=== PATIENT | male | born 1960 | race Caucasian/White ===

== ENCOUNTER 2017-10-28 09:28 | Emergency (ER) | payer MEDICAID ==
[~2017-10-28] VITALS: Ht 170.2 cm; Wt 90.9 kg
[~2017-10-28 09:28] MED LIST: LISI-600 PO
[2017-10-28 10:31] LABS: BASOPHILS % (AUTO) 0.9 % (0-1); EOSINOPHILS # (AUTO) 0.1 X10'3 (0-0.9); EOSINOPHILS % (AUTO) 1.9 % (0-6); HEMATOCRIT 43.6 % (42.0-52.0); HEMOGLOBIN 14.5 g/dl (14.0-17.9); LYMPHOCYTES # (AUTO) 1.3 X10'3 (1.1-4.8); LYMPHOCYTES % (AUTO) 30.3 % (21-51); MEAN CORPUSCULAR HEMOGLOBIN 28.4 PG (27.0-31.0); MEAN CORPUSCULAR HGB CONC 33.3 % (33.0-36.5); MEAN CORPUSCULAR VOLUME 85.2 FL (78-98); MEAN PLATELET VOLUME 8.3 FL (7.4-10.4); MONOCYTES # (AUTO) 0.3 X10'3 (0-0.9); MONOCYTES % (AUTO) 6.9 % (2-12); NEUTROPHILS # (AUTO) 2.6 X10'3 (1.8-7.7); PLATELET COUNT 214 X10'3 (140-440); RED BLOOD COUNT 5.12 X10'6 (4.70-6.10); RED CELL DISTRIBUTION WIDTH 15.3 % (11.5-14.5); WHITE BLOOD COUNT 4.4 X10'3 (4.5-11.0)
[2017-10-28 10:40] LABS: PROTHROMBIN TIME 10.8 SECONDS (9.0-12.0)
[2017-10-28 10:44] LABS: ALANINE AMINOTRANSFERASE 19 U/L (12-78); ALBUMIN 3.6 G/DL (3.4-5.0); ALKALINE PHOSPHATASE 100 IU/L (46-116); ANION GAP 5 (8-16); ASPARTATE AMINO TRANSFERASE 14 U/L (10-37); BILIRUBIN,TOTAL 0.6 MG/DL (0.1-1.0); BLOOD UREA NITROGEN 14 MG/DL (7-18); BUN/CREATININE RATIO 14.1 (5.4-32.0); CALCIUM 8.5 MG/DL (8.5-10.1); CHLORIDE 104 MMOL/L (99-107); CREATININE 0.99 MG/DL (0.60-1.10); GLUCOSE 81 MG/DL (70-104); POTASSIUM 3.7 MMOL/L (3.5-5.1); SODIUM 138 MMOL/L (135-145); TOTAL CARBON DIOXIDE 29.4 MMOL/L (24-32); TOTAL PROTEIN 7.1 G/DL (6.4-8.2); eGFR 78 ML/MIN
[2017-10-28 10:55] LABS: CLARITY,URINE CLEAR (Clear); COLOR,URINE YELLOW (Yellow); GLUCOSE, URINE NEGATIVE (Neg); KETONES,URINE NEGATIVE (Neg); LEUKOCYTE ESTERASE ,URINE NEGATIVE (Neg); NITRITES, URINE NEGATIVE (Neg); OCCULT BLOOD,URINE NEGATIVE (Neg); PROTEIN,URINE NEGATIVE (Neg); UROBILINOGEN,URINE 0.2 E.U/dL (0.2-1.0)
[2017-10-28 10:59] LABS: UA COLLECTION TYPE STRAIGHT CATH
[2017-10-28] MEDS ORDERED: bisacodyl 10mg suppository rectal RC ONE (12:20)
[2017-10-28] MEDS ORDERED: normal saline 1000ML IV soln IVB ONE (12:20)
[2017-10-28] MEDS ORDERED: NA P133E4 RC (13:42)
[2017-10-28 14:05] VITALS: BP 168/83
[2017-10-28 14:25] LABS: LIPASE 118 U/L (73-393)
== END 2017-10-28 14:10 | disposition home or self-care (01) ==
LOC: ER 09:28
DX: K56.41 Fecal impaction (principal); G20 Parkinson's disease
CPT/HCPCS: 36415; 74018; 80053; 81003; 83690; 85025; 85610; 96360; 99285; A4353; J7030; 96365

== ENCOUNTER 2017-11-22 06:22 | Day surgery (SDC) | payer MEDICAID ==
[~2017-11-22] VITALS: Ht 170.2 cm; Wt 90.5 kg
[2017-11-22] VITALS (11 sets, daily range): BP systolic 127–167; BP diastolic 36–98
[2017-11-22] MEDS ORDERED: LIDOcaine Viscous 15ml cup ONE (06:36)
[2017-11-22] MEDS ORDERED: fentaNYL/PF 50MCG/1 ML 2ML syringe ONE (06:37)
[2017-11-22] MEDS ORDERED: MIDAZolam 1mg/ml 10ml vial ONE (06:37)
[2017-11-22] MEDS ORDERED: CHOL2000 PO (07:02)
[2017-11-22] MEDS ORDERED: ERGO500014 PO (07:02)
[2017-11-22] MEDS ORDERED: PANT-47 PO (07:03)
[2017-11-22] MEDS ORDERED: RASA1TAB4 PO (07:04)
[2017-11-22] MEDS ORDERED: MAGN400C PO (07:05)
[2017-11-22] MEDS ORDERED: [UNRECOGNIZED DRUG - CODE] PO (07:06)
[2017-11-22] MEDS ORDERED: METO25TA6 PO (07:07)
[2017-11-22] MEDS ORDERED: ATOR10TA PO (07:07)
[2017-11-22] MEDS ORDERED: AMIO200T57 PO (07:08)
[2017-11-22] MEDS ORDERED: MELA3TAB PO (07:09)
[2017-11-22] MEDS ORDERED: CARB1TAB23 PO (07:09)
[2017-11-22] MEDS ORDERED: ACET325C PO (07:11)
[2017-11-22] MEDS ORDERED: MAGN400O6 PO (07:12)
[2017-11-22] MEDS ORDERED: DULR RC (07:12)
[2017-11-22] MEDS ORDERED: NA P133E4 RC (07:13)
[2017-11-22] MEDS ORDERED: dextrose 50%-water 50ml dispensing syringe IV ONE (10:48)
== END 2017-11-22 13:11 ==
LOC: GI LAB 06:22
PROVIDERS: ATTEND Internal Medicine Gastroenterology
DX: Z12.11 Encounter for screening for malignant neoplasm of colon (principal); K29.50 Unspecified chronic gastritis without bleeding; K22.8 Other specified diseases of esophagus; K20.9 Esophagitis, unspecified; D37.5 Neoplasm of uncertain behavior of rectum; K62.89 Other specified diseases of anus and rectum; I10 Essential (primary) hypertension; E78.5 Hyperlipidemia, unspecified; G47.30 Sleep apnea, unspecified; J45.909 Unspecified asthma, uncomplicated; Z79.899 Other long term (current) drug therapy
CPT/HCPCS: 43239; 45380; 82948; 99152; 99153; J2250; J3010; J7030; J7060; A4620; G0500

== ENCOUNTER 2018-05-04 07:12 | Day surgery (SDC) | payer MEDICAID ==
[~2018-05-04] VITALS: Ht 170.2 cm; Wt 86.8 kg
[~2018-05-04 07:12] MED LIST changes: +ACET325C PO; +AMIO200T57 PO; +ATOR10TA PO; +CARB1TAB23 PO; +CHOL2000 PO; +DULR RC; +ERGO500014 PO; -LISI-600 PO; +MAGN400C PO; +MAGN400O6 PO; +MELA3TAB PO; +METO25TA6 PO; +NA P133E4 RC; +PANT-47 PO; +RASA1TAB4 PO; +[UNRECOGNIZED DRUG - CODE] PO
[2018-05-04] MEDS ORDERED: normal saline 1000ml 1,000 ML IV PRN (07:30)
[2018-05-04 08:34] VITALS: BP 141/69
[2018-05-04 08:34] LABS: BASOPHILS % (AUTO) 0.4 % (0-1); EOSINOPHILS # (AUTO) 0.3 X10'3 (0-0.9); HEMATOCRIT 38.7 % (42.0-52.0); LYMPHOCYTES # (AUTO) 1.5 X10'3 (1.1-4.8); LYMPHOCYTES % (AUTO) 31.9 % (21-51); MEAN CORPUSCULAR HGB CONC 33.6 % (33.0-36.5); MEAN CORPUSCULAR VOLUME 83.1 FL (78-98); MEAN PLATELET VOLUME 7.9 FL (7.4-10.4); MONOCYTES # (AUTO) 0.2 X10'3 (0-0.9); MONOCYTES % (AUTO) 4.9 % (2-12); NEUTROPHILS # (AUTO) 2.6 X10'3 (1.8-7.7); NEUTROPHILS % (AUTO) 56.8 % (42-75); PLATELET COUNT 152 X10'3 (140-440); RED BLOOD COUNT 4.66 X10'6 (4.70-6.10); RED CELL DISTRIBUTION WIDTH 15.3 % (11.5-14.5); WHITE BLOOD COUNT 4.6 X10'3 (4.5-11.0)
[2018-05-04] MEDS ORDERED: LORA0.5T PO (08:35)
[2018-05-04] MEDS ORDERED: SENN-161 PO (08:35)
[2018-05-04] MEDS ORDERED: RASA1TAB4 PO (08:35)
[2018-05-04] MEDS ORDERED: ESOM20CA59 PO (08:35)
[2018-05-04] MEDS ORDERED: fentaNYL/PF 50MCG/1 ML 2ML syringe IV PRN (09:55)
[2018-05-04] MEDS ORDERED: midazolam 2 mg/2 ml injection IV PRN (09:55)
[2018-05-04] MEDS ORDERED: heparin sodium, porcine/PF 100unit/ml 5ML syringe ICATH ONE (09:55)
[2018-05-04] MEDS ORDERED: heparin sodium, porcine/PF 100unit/ml 5ML syringe ONE (10:11)
[2018-05-04] MEDS ORDERED: midazolam 2 mg/2 ml injection ONE (10:11)
[2018-05-04] MEDS ORDERED: fentaNYL/PF 50MCG/1 ML 2ML syringe ONE (10:11)
[2018-05-04] MEDS ORDERED: LIDOcaine 1%/PF 5ML 10 MG/ML VIAL ONE ×2 (10:17→10:37)
[2018-05-04] MEDS ORDERED: normal saline 1000ml 1,000 ML IV SCH (10:23)
[2018-05-04 11:20] VITALS: BP 116/73
[2018-05-04 11:30] VITALS: BP 111/78
[2018-05-04 11:45] VITALS: BP 121/75
[2018-05-04 12:00] VITALS: BP 119/62
[2018-05-04 12:15] VITALS: BP 125/92
== END 2018-05-04 12:28 ==
LOC: SSTAY O 07:12
PROVIDERS: ATTEND Radiology Vascular & Interventional Radiology
DX: C20 Malignant neoplasm of rectum (principal); I10 Essential (primary) hypertension; E78.5 Hyperlipidemia, unspecified; K21.9 Gastro-esophageal reflux disease without esophagitis; G20 Parkinson's disease; G47.33 Obstructive sleep apnea (adult) (pediatric); J45.998 Other asthma; Z79.891 Long term (current) use of opiate analgesic; Z79.899 Other long term (current) drug therapy
CPT/HCPCS: 36415; 36561; 76937; 77001; 85025; 99152; 99153; A6219; C1788; C1894; J1642; J2001; J2250; J3010; J7030; A4620

== ENCOUNTER 2019-10-16 07:15 | Day surgery (SDC) | payer MEDICAID ==
[~2019-10-16] VITALS: Ht 170.2 cm; Wt 75.0 kg
[2019-10-16] VITALS (8 sets, daily range): BP systolic 117–151; BP diastolic 63–98
[~2019-10-16 07:15] MED LIST changes: -ACET325C PO; +ACET325C3 PO; -AMIO200T57 PO; +AMIO200T61 PO; -ERGO500014 PO; +ESOM20CA59 PO; +LORA0.5T PO; -MELA3TAB PO; +MELA3TAB64 PO; -PANT-47 PO; +SENN-162 PO; -[UNRECOGNIZED DRUG - CODE] PO
[2019-10-16] MEDS ORDERED: CAPE150T5 PO (07:41)
[2019-10-16] MEDS ORDERED: fentaNYL/PF 50MCG/1 ML 2ML syringe ONE (07:43)
[2019-10-16] MEDS ORDERED: CARB1TAB23 PO (07:43)
[2019-10-16] MEDS ORDERED: MIDAZolam 5mg/5ml vial ONE ×2 (07:44)
[2019-10-16] MEDS ORDERED: ESCI10TA PO (07:46)
[2019-10-16] MEDS ORDERED: MAGN400C PO (07:47)
[2019-10-16] MEDS ORDERED: DIPH25CA83 PO (07:47)
[2019-10-16] MEDS ORDERED: DOCU-148 (07:48)
[2019-10-16] MEDS ORDERED: ONDA4TAB12 PO (07:50)
[2019-10-16] MEDS ORDERED: SENN-162 PO (07:50)
[2019-10-16] MEDS ORDERED: SELE5TAB5 (07:51)
[2019-10-16] MEDS ORDERED: DONE5TAB7 PO (07:52)
[2019-10-16] MEDS ORDERED: ATOR10TA PO (07:53)
[2019-10-16] MEDS ORDERED: CHOL200052 PO (07:53)
[2019-10-16] MEDS ORDERED: MELA3TAB64 PO (07:54)
[2019-10-16] MEDS ORDERED: diphenhydrAMINE 50 mg/ml inj ONE (09:28)
== END 2019-10-16 11:35 ==
LOC: GI LAB 07:15
PROVIDERS: ATTEND Internal Medicine Gastroenterology
DX: Z08 Encounter for follow-up examination after completed treatment for malignant neoplasm (principal); C20 Malignant neoplasm of rectum
CPT/HCPCS: 45380; 82948; 99152; 99153; J1200; J2250; J3010; J7040; A4620

== ENCOUNTER 2021-04-27 22:10 | Inpatient (IN) | payer MEDICAID ==
[~2021-04-27] VITALS: Ht 167.6 cm; Wt 75.0 kg
[~2021-04-27 22:10] MED LIST changes: -AMIO200T61 PO; +CAPE150T5 PO; -CHOL2000 PO; +CHOL200052 PO; +DIPH25CA83 PO; +DOCU-148; +DONE5TAB7 PO; +ESCI10TA PO; -ESOM20CA59 PO; -LORA0.5T PO; -MAGN400O6 PO; +MELA3TAB39 PO; -MELA3TAB64 PO; -METO25TA6 PO; +ONDA4TAB12 PO; -RASA1TAB4 PO; +SELE5TAB5; -SENN-162 PO; +SENN-263 PO
[2021-04-27] MEDS ORDERED: normal saline 1000ML IV soln IVB ONE (22:20)
[2021-04-27 23:03] LABS: LACTIC SEPSIS 0.9 MMOL/L (0.4-2.0)
[2021-04-27 23:07] LABS: BASOPHILS % (AUTO) 0.5 % (0-1); EOSINOPHILS # (AUTO) 0.1 X10'3 (0-0.9); EOSINOPHILS % (AUTO) 2.4 % (0-6); HEMATOCRIT 42.9 % (42.0-52.0); HEMOGLOBIN 14.3 g/dl (14.0-17.9); LYMPHOCYTES # (AUTO) 0.9 X10'3 (1.1-4.8); LYMPHOCYTES % (AUTO) 14.3 % (21-51); MEAN CORPUSCULAR HEMOGLOBIN 32.3 PG (27.0-31.0); MEAN CORPUSCULAR HGB CONC 33.4 g/dL (33.0-36.5); MEAN CORPUSCULAR VOLUME 96.7 FL (78-98); MEAN PLATELET VOLUME 7.5 FL (7.4-10.4); MONOCYTES # (AUTO) 0.6 X10'3 (0-0.9); MONOCYTES % (AUTO) 9.8 % (2-12); NEUTROPHILS # (AUTO) 4.5 X10'3 (1.8-7.7); PLATELET COUNT 138 X10'3 (140-440); RED BLOOD COUNT 4.44 X10'6 (4.70-6.10); WHITE BLOOD COUNT 6.1 X10'3 (4.5-11.0)
[2021-04-27 23:10] LABS: ALANINE AMINOTRANSFERASE 9 U/L (12-78); ALBUMIN 3.2 G/DL (3.4-5.0); ALBUMIN/GLOBULIN RATIO 0.9 (1.1-1.5); ALKALINE PHOSPHATASE 98 IU/L (46-116); ANION GAP 4 (8-16); ASPARTATE AMINO TRANSFERASE 25 U/L (10-37); BILIRUBIN,TOTAL 0.5 MG/DL (0.1-1.0); BLOOD UREA NITROGEN 29 MG/DL (7-18); BUN/CREATININE RATIO 35.4 (5.4-32.0); CALCIUM 8.3 MG/DL (8.5-10.1); CHLORIDE 108 MMOL/L (99-107); CREATININE 0.82 MG/DL (0.60-1.10); GLUCOSE 79 MG/DL (70-104); POTASSIUM 4.1 MMOL/L (3.5-5.1); SODIUM 142 MMOL/L (135-145); TOTAL CARBON DIOXIDE 30.2 MMOL/L (24-32); TOTAL PROTEIN 6.9 G/DL (6.4-8.2); eGFR > 90 ML/MIN
[2021-04-27 23:17] LABS: C-REACTIVE PROTEIN 1.63 MG/DL (0.0-0.5); FERRITIN 98 NG/ML (26-388); LACTATE DEHYDROGENASE 150 U/L (85-227); MAGNESIUM 2.4 MG/DL (1.5-2.4)
[2021-04-27 23:19] LABS: ETHANOL < 0.010 GM/DL (0.0-0.010)
[2021-04-27 23:44] LABS: PARTIAL THROMBOPLASTIN TIME 30 SECONDS (22-32)
[2021-04-28 00:19] LABS: CLARITY,URINE CLEAR (Clear); COLOR,URINE YELLOW (Yellow); GLUCOSE, URINE NEGATIVE (Neg); KETONES,URINE 15 mg/dl (Neg); LEUKOCYTE ESTERASE ,URINE NEGATIVE (Neg); NITRITES, URINE NEGATIVE (Neg); OCCULT BLOOD,URINE NEGATIVE (Neg); PROTEIN,URINE NEGATIVE (Neg); UROBILINOGEN,URINE 0.2 E.U/dL (0.2-1.0)
[2021-04-28 00:24] LABS: UA COLLECTION TYPE STRAIGHT CATH
[2021-04-28 00:33] LABS: URINE AMPHETAMINE SCREEN NEGATIVE (Neg); URINE BARBITUATE SCREEN NEGATIVE (Neg); URINE BENZODIAZEPINES SCREEN NEGATIVE (Neg); URINE CANNABINOID SCREEN NEGATIVE (Neg); URINE COCAINE SCREEN NEGATIVE (Neg); URINE METHADONE SCREEN NEGATIVE (Neg); URINE OPIATE SCREEN NEGATIVE (Neg); URINE PHENCYCLIDINE SCREEN NEGATIVE (Neg)
[2021-04-28] MEDS ORDERED: potassium Cl 20 mEq SR tablet PO PRN ×2 (01:55)
[2021-04-28] MEDS ORDERED: acetaminophen 325mg tablet PO PRN (01:55)
[2021-04-28] MEDS ORDERED: ondansetron/PF 4mg/2ml inj IV PRN (01:55)
[2021-04-28] MEDS ORDERED: magnesium Cl slow-release 64mg tablet PO PRN (01:55)
[2021-04-28] MEDS ORDERED: normal saline 1000ml 1,000 ML IV SCH (01:55)
[2021-04-28] MEDS ORDERED: potassium Cl 40MEQ/1/2NS 520ml 520 ML IV PRN ×2 (01:55)
[2021-04-28] MEDS ORDERED: magnesium 4gm in 100ml NS 100 ML IV PRN (01:55)
[2021-04-28] MEDS ORDERED: magnesium 2GM in 50ml NS 50 ML IV PRN (01:55)
[2021-04-28] MEDS ORDERED: DONE-46 PO (05:45)
[2021-04-28] MEDS ORDERED: LORA-269 PO (05:45)
[2021-04-28] MEDS ORDERED: ESCI5TAB17 PO (05:59)
[2021-04-28] MEDS ORDERED: PYRI-3 PO (05:59)
[2021-04-28] MEDS ORDERED: DIVA-76 PO (05:59)
[2021-04-28] MEDS ORDERED: DOCU100C40 PO (05:59)
[2021-04-28] MEDS ORDERED: OXYC-150 PO (05:59)
[2021-04-28] MEDS ORDERED: ACET-3080 PO (05:59)
[2021-04-28] MEDS ORDERED: [UNRECOGNIZED DRUG - CODE] PO (05:59)
[2021-04-28] MEDS ORDERED: MAGN400C PO (05:59)
[2021-04-28] MEDS ORDERED: CHOL20004 PO (05:59)
[2021-04-28] MEDS ORDERED: ATOR10TA70 PO (05:59)
[2021-04-28] MEDS ORDERED: MELA1TAB28 PO (05:59)
[2021-04-28] MEDS ORDERED: BISA10SU11 RC (05:59)
[2021-04-28] MEDS ORDERED: NA P133E4 RC (05:59)
[2021-04-28] MEDS ORDERED: CARB-296 PO (05:59)
[2021-04-28] MEDS ORDERED: PROP10TA10 PO (05:59)
[2021-04-28] MEDS ORDERED: MAGN400O6 PO (05:59)
[2021-04-28] MEDS ORDERED: [UNRECOGNIZED DRUG - CODE] PO (05:59)
--- NOTE | 2021-04-28 07:20 | NUR ---
Patient in room ED 16. I have received report from JAY JAY,BREAKFAST ATTENDANT and had the opportunity to ask questions and assume patient care.
[2021-04-28 08:00] VITALS: BP 145/88
[2021-04-28] MEDS ORDERED: K and/or MAG REPLACEMENT MC SCH (08:00)
[2021-04-28] MEDS ORDERED: docusate sod 100mg capsule PO SCH (08:00)
--- NOTE | 2021-04-28 08:00 | NUR ---
received pt into [facility], oriented to surroundings, pt oriented to self, unclear on date or location, pt passed bedside swallow , with sitting upright, speech therapy follow up with minced/moist diet ordered. Pt speaks in 3-4 word sentances follows some of neuro exam commands, does not move legs, no drift in arms, no facial droop, dr. marquez aware of pt
--- NOTE | 2021-04-28 08:30 | NUR ---
pt unable to give replies to admit questions
[2021-04-28 10:00] VITALS: BP 95/62
--- NOTE | 2021-04-28 10:40 | NUR ---
PUT NEW IV IN LEFT AC 22 G. I WENT TO GET SOME FLUIDS TO HANG FOR THE PATIENT. I WRAPPED IT IN [place] AND PUT ARM SLEEVE ON BUT HE APPARENTLY REMOVED IT AND SOMEHOW GOT HIS IV OUT. HE IS HAVING TREMORS CURRENTLY.
--- NOTE | 2021-04-28 11:00 | NUR ---
PT IS AGITATED, PULLED OUT 3 IVS, WRITHING IN BED, PT HAS BIT HIS LIP, DR. KILLIAN AWARE, STATES HE WILL BE [facility]URNING TO [facility], PT FREQUENTLY INCONTIENT OF URINE AND STOOL, KEPT CLEAN, WITH TAB ALARM ON, RN AT BEDSIDE, PT CONT VERY AGITATED
[2021-04-28] MEDS ORDERED: LORazepam 2 mg/ml vial IM ONE (11:55)
--- NOTE | 2021-04-28 12:12 | NUR ---
pt cont attempting oob, pulling off gown and moniter medicated x1 with ativan 0.5 mg im to right gluteal, pt remains closely monitered
--- NOTE | 2021-04-28 15:00 | NUR ---
pt. report phoned to nury angeles @ [facility], pt transferred via [facility] with chuy
[2021-04-28] MEDS ORDERED: enoxaparin 40mg/0.4ml syringe SQ SCH (20:00)
== END 2021-04-28 15:24 | DRG 52 ==
LOC: ER 22:11 → ED HOLD 04-28 01:51 → ORTHO 4S 04-28 07:45
PROVIDERS: ADMIT Family Medicine; ATTEND Family Medicine
DX: G93.41 Metabolic encephalopathy (principal); G20 Parkinson's disease; F02.80 Dementia in other diseases classified elsewhere, unspecified severity, without behavioral disturbance, psychotic disturbance, mood disturbance, and anxiety; E78.5 Hyperlipidemia, unspecified; I10 Essential (primary) hypertension; F32.9 Major depressive disorder, single episode, unspecified; R79.82 Elevated C-reactive protein (CRP)
CPT/HCPCS: 36415; 70450; 71045; 80053; 80305; 80320; 81003; 82140; 82728; 82948; 83605; 83615; 83735; 83880; 84145; 84484; 85025; 85384; 85610; 85730; 86140; 87040; 87635; 92508; 92616; 93306; 99285; G0378; J2060; J7030